=== PATIENT | male | born 1960 | race African-American/Black ===

== ENCOUNTER 2020-01-16 16:36 | Emergency (ER) | payer SELFPAY ==
[~2020-01-16] VITALS: Ht 175.3 cm; Wt 66.0 kg
[2020-01-16 16:44] VITALS: BP 130/42
== END 2020-01-16 19:43 | disposition left against medical advice (07) ==
LOC: ER 16:48
DX: Z53.21 Procedure and treatment not carried out due to patient leaving prior to being seen by health care provider (principal)